=== PATIENT | male | born 1935 | race Caucasian/White ===

== ENCOUNTER 2018-09-29 05:20 | Day surgery (SDC) | payer MEDICARE, BC ==
[2018-09-27 09:41] LABS: HEMATOCRIT 35.2 % (42.0-54.0); LYMPHOCYTES 25.8 % (15-50); MCH 31.4 pg (26.0-34.0); MCHC 34.1 g/dL (31.0-37.0); MCV 92.1 fL (80.0-100.0); MEAN PLATELET VOLUME 9.4 fL (7.4-10.4); NEUTROPHILS 62.5 % (40-80); PLATELET COUNT 183 10x3/uL (130-400); RBC 3.82 10x6/uL (4.20-6.10); RDW 11.9 % (11.5-14.5); WBC 7.6 10x3/uL (4.8-10.8)
[2018-09-27 09:51] LABS: ANION GAP 7.5 mmol/L (8-16); CARBON DIOXIDE 27.2 mmol/L (21.0-32.0); CREATININE - SERUM 1.7 mg/dL (0.6-1.3); POTASSIUM - SERUM 4.7 mmol/L (3.5-5.1)
[~2018-09-29 05:20] MED LIST: ASCORBIC ACID500 MG PO; ASPIRIN 81 MG E81 MG PO; ASPIRIN EC81 M1 PO; BENADRYL INJ50 MG/ML PO; BENADRYL25 MG PO; COLACE100 MG PO; COUMADIN4 MG PO; COUMADIN5 MG PO; DILAUDID INJ2 MG/ML IV; ELIQUIS2.5 MG PO; FERROUS SULFAT325 MG PO; FLOMAX0.4 MG PO; FOLIC ACID1 MG PO; HYDROCODONE-APA1 TAB PO; LYCOPENE PO; MAGNESIUM OXID500 MG PO; MULTI-DAY VITAM1 TAB PO; MULTIPLE VITAMI1 TA1 PO; NORCO 10/325 TA1 TA1 PO; NORVASC5 MG PO; ONDANSETRON4 MG/2 M3 IV; ONDANSETRON4 MG/2 M3 PO; OXYCONTIN10 MG PO; PERCOCET 10/3251 TA1 PO; PRAVACHOL80 MG PO; SALINE FLUSH10 ML IJ; SAW PALMETTO450 MG PO; SELENIUM PO; TOPROL XL25 MG PO; VITAMIN D31000 UNIT PO; VITAMIN E100 UNIT PO; ZINC50 MG; ZOFRAN4 MG PO; tumeric PO
[2018-09-29 06:32] VITALS: BP 174/72; BMI 22.2
[2018-09-29] MEDS ORDERED: HYDROCODON-ACE1 EA10 PO (08:48)
--- NOTE | 2018-09-29 11:14 | NUR ---
1135 IV DC'D. CATHETER INTACT. PRESSURE HELD UNTIL BLEEDING STOPPED. BANDAID APPLIED.
--- NOTE | 2018-09-29 11:16 | NUR ---
1100 PT IS READY FOR DISCHARGE. WAITING FOR ELIQUIS PRESCRIPTION FROM DR. ISRAEL.
--- NOTE | 2018-10-03 08:25 | OP ---
PATIENT NAME: HANNA LR MEDICAL RECORD: [id number] :37 LOCATION:[facility] ADMISSION DATE: SURGEON: LILY ISRAEL MD DATE OF OPERATION: 09/29/2018 PREOPERATIVE DIAGNOSIS: Left great toe MTP dislocation with hallux valgus angular deformity of approximately 70 degrees -- failed prior bunion surgery. POSTOPERATIVE DIAGNOSIS: Left great toe MTP dislocation with hallux valgus angular deformity of approximately 70 degrees -- failed prior bunion surgery. PROCEDURE: Left great toe MTP fusion. SURGEON: Lily Israel MD RECOATER: Ugo Jett. INTRAOPERATIVE COMPLICATIONS: None. SUMMARY OF PATHOLOGIC FINDINGS: The patient's toe was dislocated. The skin over the medial aspect of the MTP toe phalanx was very thin. The capsule was essentially completely gone. Fusion system used was the anchorage II system from [place]. OPERATIVE SUMMARY IN DETAIL: After obtaining the appropriate preoperative orthopedic surgery consent as well as anesthetic consultation, evaluation and clearance, the patient was brought to the operating room and placed on the operating table in supine position. Administered general laryngeal mask airway was administered, tourniquet was placed on the proximal aspect of left lower extremity. Left lower extremity was then prepped and draped in routine fashion. The leg was elevated and exsanguinated, tourniquet was inflated to 350 mmHg. A dorsal based incision was taken down in a curvilinear fashion following the hallux valgus angle. Dissection was carried out about the distal aspect of the left great toe phalanx. This was then simply brought out through the wound. The distal aspect was cut flush and then the proximal aspect of the toe phalanx was likewise cut. Lateral structures were released. The toe was then reduced with a nice [id number]-rs-atrt cut for fusion. The anchorage II plate was then deployed using it as it was described that is the proximal screws were placed followed by the central compression screw followed by the distal screws. A small amount of bone graft was packed around the area. Fluoroscopy images were taken in both AP and lateral planes. It showed excellent position of the fusion both in AP and lateral planes. At this point, irrigation was followed by reclosure of the capsule as well as closure of the skin with 4-0 Prolene done by Ugo Jett. Sterile dressings were applied. [id number] medial pole bandage was applied. A postoperative boot was then put into place after the tourniquet was deflated. The patient was awakened and taken to the recovery room in stable condition. All final needle and sponge counts were correct. TRANSINT:[id number] Voice Confirmation ID: [id number] DOCUMENT ID: [id number] OPERATIVE REPORT [id number] HANNA LR MD, LILY HILL at 0825 CC: [id number] DICTATION DATE: 09/30/18926 MANAGER ACCESS: 09/30/18 1056 [facility] 09/29/18 [id number] [place] [address]
== END 2018-09-29 11:14 | disposition home or self-care (01) ==
LOC: D.OPS 05:20 → D.PAN 07:30 → D.OPS 07:30
PROVIDERS: Anesthesiology; ATTEND Orthopaedic Surgery
DX: M20.12 Hallux valgus (acquired), left foot (principal); S93.122A Dislocation of metatarsophalangeal joint of left great toe, initial encounter